=== PATIENT | female | born 2000 | race Caucasian/White ===

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

== ENCOUNTER 2024-12-14 12:35 | Emergency (ER) | payer OTHER ==
[~2024-12-14] VITALS: Ht 170.2 cm; Wt 79.8 kg
[2024-12-14 15:08] LABS: BASO % 0.3 % (0.1-1.2); EOS % 4.4 % (0.7-7.0); HEMATOCRIT 31.5 % (34.1-44.9); HEMOGLOBIN 11.4 g/dL (11.2-15.7); LYMPH % 20.5 % (19.3-53.1); MEAN CORPUSCULAR HEMOGLOBIN 30.7 pg (25.6-32.2); MONO # 0.52 (0.24-0.82); MONO % 7.6 % (4.7-12.5); NEUT # 4.57 (1.56-6.13); NEUT % 66.9 % (34.0-71.1); PLATELET COUNT 279 K/uL (163-369); RED BLOOD COUNT 3.71 M/uL (3.93-5.22); RED CELL DISTRIBUTION WIDTH 12.8 % (11.6-14.4)
[2024-12-14 15:57] LABS: COVID-19 AG POSITIVE (NEGATIVE); INFLUENZA A AG NEGATIVE (NEGATIVE); INFLUENZA B AG NEGATIVE (NEGATIVE)
== END 2024-12-14 16:09 | disposition home or self-care (01) ==
LOC: ER 12:35
DX: U07.1 COVID-19 (principal); J06.9 Acute upper respiratory infection, unspecified

== ENCOUNTER 2024-12-31 00:39 | Outpatient (CLI) | payer OTHER ==
[2024-12-31 00:35] VITALS: BP 102/65
[2024-12-31 04:09] VITALS: BP 102/66
[2024-12-31 06:31] VITALS: BP 98/60; O2SAT 99
[2024-12-31] MEDS ORDERED: TERCONAZOLE80 MG VAG (07:39)
[2024-12-31 09:29] VITALS: BP 98/60
== END 2024-12-31 10:17 | disposition home or self-care (01) ==
LOC: OBS/DEL 00:39
PROVIDERS: ATTEND Specialist
DX: O26.892 Other specified pregnancy related conditions, second trimester (principal); O23.592 Infection of other part of genital tract in pregnancy, second trimester; Z3A.22 22 weeks gestation of pregnancy

== ENCOUNTER 2025-04-29 13:45 | Inpatient (IN) | payer OTHER ==
[~2025-04-29] VITALS: Ht 170.2 cm; Wt 98.4 kg
[~2025-04-29 13:45] MED LIST: TERCONAZOLE80 MG VAG
[2025-05-04] MEDS ORDERED: AMPICILLIN SODIUM 2,000 MG VIAL IV STA (05:36)
[2025-05-04] MEDS ORDERED: RINGERS SOLUTION,LACTATED 1,000 ML IV SCH (05:45)
[2025-05-04 05:50] VITALS: BP 133/89
[2025-05-04] MEDS ORDERED: OXYTOCIN 20 UNITS/500ML RL PIGGYBAG IV ONE (06:20)
[2025-05-04] MEDS ORDERED: OXYTOCIN 500 ML IV SCH ×2 (06:45→18:30)
[2025-05-04] MEDS ORDERED: PRENATA CHEWAB1 EACH PO (07:21)
[2025-05-04 07:46] VITALS: BP 126/79
[2025-05-04 07:49] LABS: BASO % 0.2 % (0.1-1.2); EOS # 0.15 (0.04-0.54); EOS % 1.5 % (0.7-7.0); LYMPH # 1.83 (1.18-3.74); LYMPH % 18.9 % (19.3-53.1); MEAN PLATELET VOLUME 10.40 fl (9.4-12.4); MONO # 0.78 (0.24-0.82); MONO % 8.1 % (4.7-12.5); NEUT # 6.85 (1.56-6.13); NEUT % 70.8 % (34.0-71.1); RED CELL DISTRIBUTION WIDTH 13.1 % (11.6-14.4)
[2025-05-04 08:20] LABS: URINE APPEARANCE Clear; URINE BILIRRUBIN Negative (NEGATIVE); URINE BLOOD Small; URINE COLOR Yellow; URINE GLUCOSE Negative (NEGATIVE); URINE KETONE Negative (NEGATIVE); URINE LEUKOCYTE Large; URINE NITRATE Negative; URINE PROTEIN Negative (NEGATIVE); URINE UROBILINOGEN 0.2 E.U./dl
[2025-05-04 08:25] LABS: URINE BACTERIA 3313.1 uL (0.0-1933); URINE EPITHELIAL CELLS 43.5 uL (0.0-38.8); URINE RBC 19.6 uL (0.0-20.8); URINE WBC 150.9 uL (0.0-23.2)
[2025-05-04 08:56] LABS: ALT/SGPT 18.0 U/L (12-78); AST/SGOT 14.0 U/L (15-37); BILIRUBIN TOTAL 0.45 mg/dL (0.3-1.2); BUN CREA RATIO 16.0 (7.0-25.0); CREATININE SERUM 0.44 mg/dL (0.55-1.02); GFR 175.68; GLOBULINA 3.4 G/DL (2.4-3.5); GLUCOSE FASTING 75.0 mg/dL (65-100); OSMOLALITY SERUM 276.0 MOSM/KG (275-295)
[2025-05-04] MEDS ORDERED: AMPICILLIN SODIUM 1,000 MG VIAL IV SCH (09:00)
[2025-05-04 09:01] LABS: URINE CAST 0.58 uL (0.0-1.40)
[2025-05-04 09:03] LABS: URINE YEAST MANY /hpf
[2025-05-04 09:20] LABS: INR < 0.93
[2025-05-04 11:55] VITALS: BP 123/75
[2025-05-04 13:13] VITALS: BP 129/81
[2025-05-04] MEDS ORDERED: MORPHINE SULFATE 4 MG/ML CARTRIDGE IV ONE (13:15)
[2025-05-04 15:19] VITALS: BP 139/81; O2SAT 98
[2025-05-04] MEDS ORDERED: ERYTHROMYCIN BASE OPHT 1GM EACH TUBE OP ONE (18:30)
[2025-05-04] MEDS ORDERED: ACETAMINOPHEN 500 MG GEL..CAP PO PRN (18:30)
[2025-05-04] MEDS ORDERED: CHLORHEXIDINE GLUCONATE 120 ML BOTTLE TOP ONE (18:30)
[2025-05-04] MEDS ORDERED: LIDOCAINE HCL 1% 10ML VIAL IJ ONE (18:30)
[2025-05-04] MEDS ORDERED: OXYTOCIN 1,000 ML IV ONE (18:30)
[2025-05-04 21:12] VITALS: BP 123/82
[2025-05-05] VITALS: BP 118/76
[2025-05-05 01:27] LABS: BASO % 0.2 % (0.1-1.2); EOS # 0.01 (0.04-0.54); EOS % 0.1 % (0.7-7.0); LYMPH # 1.35 (1.18-3.74); LYMPH % 8.2 % (19.3-53.1); MEAN PLATELET VOLUME 10.00 fl (9.4-12.4); MONO # 1.25 (0.24-0.82); MONO % 7.6 % (4.7-12.5); NEUT # 13.79 (1.56-6.13); NEUT % 83.5 % (34.0-71.1); RED CELL DISTRIBUTION WIDTH 13.0 % (11.6-14.4)
[2025-05-05 08:53] VITALS: BP 109/72
[2025-05-05] MEDS ORDERED: HYDROCORTISONE 2.5% 30 GM TUBE RECTAL SCH (09:00)
[2025-05-05] MEDS ORDERED: BENZOCAINE/MENTHOL 90 ML BOTTLE TOP SCH (09:00)
[2025-05-05 17:39] VITALS: BP 115/76
[2025-05-06 00:45] VITALS: BP 103/68
[2025-05-06 08:51] VITALS: BP 106/72
== END 2025-05-06 13:52 | disposition home or self-care (01) | DRG 807 ==
LOC: OB/GYN 05-04 05:33 → LDR 05-04 05:33 → OB/GYN 05-04 18:27 → LDR 05-07 13:45
PROVIDERS: ADMIT Specialist; ATTEND Specialist
PROC: 10E0XZZ Delivery of Products of Conception, External Approach (ICD-10-PCS; principal; 2025-05-04)
PROC: 3E033VJ Introduction of Other Hormone into Peripheral Vein, Percutaneous Approach (ICD-10-PCS; 2025-05-04)
PROC: 0HQ9XZZ Repair Perineum Skin, External Approach (ICD-10-PCS; 2025-05-04)
PROC: 4A1HXCZ Monitoring of Products of Conception, Cardiac Rate, External Approach (ICD-10-PCS; 2025-05-04)
DX: O70.0 First degree perineal laceration during delivery (principal); Z37.0 Single live birth; O99.824 Streptococcus B carrier state complicating childbirth; Z3A.39 39 weeks gestation of pregnancy

== ENCOUNTER 2025-05-02 05:56 | Outpatient (CLI) | payer OTHER ==
[~2025-05-02] VITALS: Ht 170.2 cm; Wt 97.5 kg
[2025-05-02 05:00] VITALS: BP 106/71
[2025-05-02 07:22] VITALS: BP 106/71
== END 2025-05-02 07:55 | disposition home or self-care (01) ==
LOC: OBS/DEL 05:56 → LDR 06:11 → OBS/DEL 06:18
PROVIDERS: ATTEND Specialist
DX: O36.8130 Decreased fetal movements, third trimester, not applicable or unspecified (principal)